=== PATIENT | female | born 1965 | race Caucasian/White ===

== ENCOUNTER 2016-10-17 13:30 | Outpatient (CLI) | payer BC ==
[~2016-10-17] VITALS: Ht 152.4 cm; Wt 97.5 kg
[~2016-10-17 13:30] MED LIST: ASPI32ECTA PO; MULT1TAB10 PO; NS 1,000 ML IV ONE; OMEP40CA2 PO
[2016-10-17] MEDS ORDERED: LIDOCAINE 2% INJ 100 MG/5 ML SDV (FOR ANES.) As Ordered ONE (13:56)
[2016-10-17] MEDS ORDERED: PROPOFOL 200 MG/20 ML VIAL As Ordered ONE (13:56)
[2016-10-17] MEDS ORDERED: PROPOFOL 500 MG/50 ML VIAL As Ordered ONE (13:57)
--- NOTE | 2016-10-17 14:10 | ROOR ---
Patient Name: Dimitrios Charles Procedure Date: 10/17/2016 1:52 PM Date of : 1965 Age: 50 Room: [facility] Gender: Female Note Status: Finalized Procedure: Colonoscopy Indications: Screening for colorectal malignant neoplasm Providers: Jaden LEE MD Referring MD: Amanda López Requesting Provider: Medicines: Monitored Anesthesia Care Complications: No immediate complications. Procedure: Pre-Anesthesia Assessment: - The heart rate, respiratory rate, oxygen saturations, blood pressure, adequacy of pulmonary ventilation, and response to care were monitored throughout the procedure. The Colonoscope was introduced through the anus and advanced to the cecum, identified by appendiceal orifice and ileocecal valve. The colonoscopy was performed without difficulty. The patient tolerated the procedure well. The quality of the bowel preparation was good. Findings: The perianal and digital rectal examinations were normal. A 6 mm polyp was found in the sigmoid colon. The polyp was semi-pedunculated. The polyp was removed with a hot snare. Resection and retrieval were complete. To prevent bleeding after the polypectomy, one hemostatic clip was successfully placed. There was no bleeding at the end of the procedure. Small Internal Hemorrhoids. The exam was otherwise without abnormality on direct and retroflexion views. Impression: - One 6 mm polyp in the sigmoid colon, removed with a hot snare. Resected and retrieved. Clip was placed. - Small Internal Hemorrhoids. - The colon examination was otherwise normal on direct and retroflexion views. Recommendation: - Repeat colonoscopy in 3 years for surveillance. - Telephone endoscopist for pathology results in 2 weeks. Jaden Lee MD Jaden LEE MD 10/17/2016 2:10:14 PM This report has been signed electronically. Number of Addenda: 0 Note Initiated On: 10/17/2016 1:52 PM Estimated Blood Loss: Estimated blood loss: none.
[2016-10-17 14:30] VITALS: BP 139/69
== END 2016-10-17 14:30 | disposition home or self-care (01) ==
LOC: M OPP 13:30
PROVIDERS: ATTEND Internal Medicine Gastroenterology
DX: Z12.11 Encounter for screening for malignant neoplasm of colon (principal); D12.5 Benign neoplasm of sigmoid colon; K64.8 Other hemorrhoids; R12 Heartburn; K21.9 Gastro-esophageal reflux disease without esophagitis; L30.9 Dermatitis, unspecified; Z79.82 Long term (current) use of aspirin; Z79.899 Other long term (current) drug therapy; Z80.41 Family history of malignant neoplasm of ovary